=== PATIENT | female | born 1940 ===

== ENCOUNTER 2019-12-12 05:00 | Day surgery (SDC) | payer OTHER ==
[~2019-12-12 05:00] MED LIST: AMILORIDE HCL5 MG PO; CARDURA8 MG PO; COZAAR100 MG PO; HUMALOG100 UNIT/2; LANTUS SOL100 UNIT/1; PEPCID AC20 MG PO; RENAGEL800 MG PO; SENSIPAR30 MG PO; SYNTHROID175 MCG PO
[2019-12-12] MEDS ORDERED: ULTRACET PO (08:56)
== END 2019-12-12 13:57 | disposition home or self-care (01) ==
LOC: CIR.AMB 05:00 → AMB-ENDOS 10:00 → CIR.AMB 10:00
PROVIDERS: ATTEND Surgery
DX: K62.3 Rectal prolapse (principal); Z20.828 Contact with and (suspected) exposure to other viral communicable diseases